=== PATIENT | male | born 1955 | race Caucasian/White ===

== ENCOUNTER 2017-03-10 19:25 | Emergency (ER) | payer BC ==
--- NOTE | 2017-03-13 16:56 | EDM.PDOC ---
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 Patient states this has happened only once before and resolve on its own with straining. He states he is in great discomfort due to the urge to urinate but unable to do so with minimal dribbling. Onset: Gradual Duration: Day(s): Quality: Reports: Pressure Severity: Severe Improves with: Reports: None Worsens with: Reports: Movement Associated Symptoms: Reports: No Other Symptoms Bladder Pain Score (Numeric/FACES): 10 - Related Data Allergies Allergy/AdvReac Type Severity Reaction Status Date / Time No Known Allergies Allergy Verified 03/10/17 20:21 ED ROS GENERAL - Review of Systems Review Of Systems: ROS reveals no pertinent complaints other than HPI. ED EXAM, RENAL/ - Physical Exam Exam: See Below Exam Limited By: No Limitations General Appearance: Alert, WD/WN, Moderate Distress Head: Atraumatic, Normocephalic Neck: Normal Inspection Respiratory/Chest: No Respiratory Distress, Lungs Clear, Normal Breath Sounds Cardiovascular: Normal Peripheral Pulses, Regular Rate, Rhythm GI/Abdominal: Other (pelvic pressure and distension) (Male) Exam: Suprapubic Fullness Neurological: Alert, Oriented ED PROCEDURES - Additional/Other Procedure(s) Procedure(s) (Free Text): Straight cath counseled including risks and benefits. Patient agreed to plan of care. Patient refused an indwelling bear. Departure - Departure Time of Disposition: 20:15 Disposition: Home, Self-Care 01 Condition: Good Clinical Impression: Urinary (tract) obstruction - Discharge Information Referrals: PCP,None [Primary Care Provider] - - Problem List Review Problem List Initiated/Reviewed/Updated: Yes - Assessment/Plan Plan: Counseled on urinary tract obstruction. Patient refuse an indwelling bear despite his stay here for another few days. He just wanted the straight cath despite counseling and discussion. Patient's symptoms relieved with use of straight cath. Patient will f/u with PCP when he gets home or return to ER or clinic as needed if symptoms return. Patient counseled on f/u with Urology as well and patient agrees with plan and care.
== END 2017-03-10 19:55 | disposition home or self-care (01) ==
LOC: LB.ED 19:25
DX: N13.9 Obstructive and reflux uropathy, unspecified (principal)
CPT/HCPCS: 51701; 99283-25